=== PATIENT | male | born 1965 | race Caucasian/White ===

== ENCOUNTER 2017-03-10 16:25 | Emergency (ER) | payer OTHER ==
[~2017-03-10] VITALS: Ht 185.4 cm; Wt 118.0 kg
[2017-03-10 16:27] VITALS: BP 184/92; PULSE 45; RESP 18; TEMP 98.2; O2SAT 99
[2017-03-10 16:33] VITALS: BP 184/92; PULSE 45; RESP 18; O2SAT 98
--- NOTE | 2017-03-10 16:56 | PD ---
HPI Chief Complaint: STEMI Alert Time Seen by Provider: 16:32 Travel History International Travel<30 days: No Contact w/Intl Traveler<30days: No Traveled to known affect area: No History of Present Illness HPI This is a 51-year-old male who presents to the emergency department having been at a routine wellness check and [facility] when he told them he was a little weak and his heart rate was found to be in the 40s. They got an EKG and it read STEMI so they transferred him to the emergency department. He denies any chest discomfort, shortness of breath, lightheadedness or dizziness. He just says he's felt weak and he's felt weak for several weeks now however since he started on any psychiatric medication. He is otherwise healthy. PFSH Past Medical History Depression: Yes Psychiatric: Yes (PTSD) Tetanus Vaccination: > 5 Years Influenza Vaccination: Yes ?: Not Past Surgical History Neurologic Surgery: Yes (NERVE SURGERY LOWER BACK) Social History Alcohol Use: No Tobacco Use: No (QUIT 17 YEARS AGO) Substance Use: No Allergies-Medications (Allergen,Severity, Reaction): Coded Allergies: Aspirin (Verified Allergy, Severe, Anaphylaxis, 03/10/17) Nonsteroidal Anti-Inflammatory Agts (Verified Allergy, Severe, Anaphylaxis , 03/10/17) Review of Systems Except as stated in HPI: all other systems reviewed are Neg Physical Exam Narrative GENERAL:Well appearing, no acute distress SKIN: Focused skin assessment warm and dry. HEAD: Atraumatic. Normocephalic. EYES: Pupils equal and round. No injection or drainage. ENT: Moist mucous membranes NECK: Trachea midline. CARDIOVASCULAR: Regular rate and rhythm. No murmur appreciated. RESPIRATORY: Clear to auscultation. Breath sounds equal bilaterally. GASTROINTESTINAL: Abdomen soft, non-tender, nondistended. MUSCULOSKELETAL: No obvious deformities. NEUROLOGICAL: Awake and alert. No obvious cranial nerve deficits. Moving all extremities. PSYCHIATRIC: Appropriate mood and affect; insight and judgment normal. Data Data Last Documented VS Vital Signs Date Time Temp Pulse Resp B/P Pulse Ox O2 Delivery O2 Flow Rate FiO2 03/10/17 16:33 45 18 184/92 98 Room Air 03/10/17 16:27 98.2 Orders Complete Blood Count With Diff (03/10/17 16:32) Comprehensive Metabolic Panel (03/10/17 16:32) Troponin I (03/10/17 16:32) ^ Insert Iv (03/10/17 16:32) Labs Laboratory Tests Test 03/10/17 16:35 Sodium Level 141 MEQ/L Potassium Level 4.1 MEQ/L Chloride Level 104 MEQ/L Carbon Dioxide Level 29.0 MEQ/L Anion Gap 8 MEQ/L Blood Urea Nitrogen 16 MG/DL Creatinine 1.08 MG/DL Estimat Glomerular Filtration 73 ML/MIN Rate Random Glucose 80 MG/DL Calcium Level 9.2 MG/DL Total Bilirubin 0.6 MG/DL Aspartate Amino Transf 35 U/L (AST/SGOT) Alanine Aminotransferase 53 U/L (ALT/SGPT) Alkaline Phosphatase 90 U/L Troponin I 0.03 NG/ML Total Protein 7.8 GM/DL Albumin 3.5 GM/DL [facility] Medical Decision Making Medical Screen Exam Complete: Yes Emergency Medical Condition: Yes Interpretation(s) ekg: nsr, isolated q wave in lead III, [address] elevation in lead III which is isolated with no reciprocal changes Troponin 0.03 Differential Diagnosis Heart block, acute coronary syndrome, arrhythmia Narrative Course This is a 51-year-old male who [facility] appointment when he was found to have a low heart rate in the 40s. He was transported to the emergency department. EMS performed an EKG which read acute myocardial infarction so they transferred him as a STEMI alert. The patient has had no chest pain. He says he has felt a little bit weak over the past week ever since he started a new psychiatric medication. Otherwise he has no shortness of breath, lightheadedness or dizziness. He was placed on a monitor and an IV was established. EKG here demonstrates an isolated Q-wave and [address] elevation in V3 alone. He is bradycardic in the 40s to 50s and his rhythm is sinus. He is active healthy romaine who walks 2-3 miles a day and cycles for an hour a day. He used to run 5-6 miles every day when he was in the . I suspect his heart rate is normal for him. He was told once before at a physical that he has a low heart rate. I definitely don't think this reflects an acute myocardial infarction as the patient is having no symptoms. I said to be cautious the patient should follow-up with cardiology regarding his heart rate and his abnormal EKG. Patient can safely be discharged home. Diagnosis Primary Impression: Sinus bradycardia Patient Instructions: General Instructions Additional Instructions: If you develop severe chest pain, shortness of breath, sweating, lightheadedness , dizziness or difficulty breathing return to the emergency department immediately. Followup with your primary care physician in 2-3 days if your symptoms are not resolved. It is very important that you follow-up with a white shoe ragger as an outpatient for a possible stress test and to have your EKG evaluated as your heart rate runs low. Med/Other Pt SpecificInfo: No Change to Meds Disposition: 01 DISCHARGE HOME Condition: Stable Amanda Reeves MD Mar 10, 2017 16:56
[2017-03-10 17:20] LABS: ALT (GPT) 53 U/L (12-78); ANION GAP 8 MEQ/L (5-15); AST (GOT) 35 U/L (15-37); BLOOD UREA NITROGEN 16 MG/DL (7-18); CHLORIDE 104 MEQ/L (98-107); GLOMERULAR FILTRATION RATE 73 ML/MIN (>89); POTASSIUM 4.1 MEQ/L (3.5-5.1); SODIUM (NA) 141 MEQ/L (136-145)
[2017-03-10 17:21] LABS: ALKALINE PHOSPHATASE 90 U/L (45-117); TOTAL BILIRUBIN ADULT 0.6 MG/DL (0.2-1.0)
[2017-03-10 17:35] VITALS: BP 149/88; PULSE 43; RESP 18; O2SAT 99
--- NOTE | 2017-03-11 13:13 | EKG ---
Date Performed: 03/10/2017 Time Performed: 16:28:40 PTAGE: 51 years EKG: SINUS BRADYCARDIA NONSPECIFIC ST & T-WAVE ABNORMALITY BORDERLINE ECG NO PREVIOUS TRACING DOCTOR: Boy Webster Interpretating Date/Time 03/11/2017 13:10:27
== END 2017-03-10 18:15 | disposition home or self-care (01) ==
LOC: NEPC 16:25
DX: R00.1 Bradycardia, unspecified (principal)
CPT/HCPCS: 80053; 84484; 93005; 99283